=== PATIENT | male | born 1945 | race Caucasian/White ===

== ENCOUNTER 2018-04-13 07:00 | Day surgery (SDC) | payer OTHER ==
[2018-04-13] MEDS ORDERED: ceFAZolin 2 GM/DEXTROSE 100 ML IV ONE (07:41)
[2018-04-13] MEDS ORDERED: LIDOCAINE 1% 2 ML INJ ID PRN (07:41)
[2018-04-13] MEDS ORDERED: LR 1,000 ML IV ONE (07:41)
--- NOTE | 2018-04-13 07:50 | PDANEPAE ---
ANE Past Medical History - Cardiovascular History Hx Hypertension: Yes Hx Arrhythmias: No Hx Chest Pain: No Hx Coronary Artery / Peripheral Vascular Disease: No Hx CHF / Valvular Disease: No Hx Palpitations: No - Pulmonary History Hx COPD: Yes Hx Asthma/Reactive Airway Disease: Yes Hx Recent Upper Respiratory Infection: No Hx Oxygen in Use at Home: No Hx Sleep Apnea: No - Endocrine History Hx Diabetes: Yes Hypothyroid: Yes Hyperthyroid: No Obesity: no - Renal History Hx Renal Disorders: No - Liver History Hx Hepatic Disorders: No - Neurological & Psychiatric Hx Hx Neurological and Psychiatric Disorders: No ANE Review of Systems Review of Systems: - Exercise capacity Exercise capacity: >=4 METS ANE Patient History - Allergies Allergies/Adverse Reactions: No Known Allergies Allergy (Verified 08/29/15 15:06) - Home Medications Home Medications: ATORVASTATIN CALCIUM [Lipitor 80 mg] 80 mg PO DAILY 03/15/11 [Last Taken ] Albuterol [Ventolin Hfa] 2 puffs IH Q4PRN 03/15/11 [Last Taken 04/08/18] Fluticasone Nasal [Flonase nasal spray] 2 sprays NASAL DAILY 03/15/11 [Last Taken 04/13/18] Hydrochlorothiazide 0 mg PO 03/15/11 [Last Taken 04/12/18] Levothyroxine [Synthroid] 0 mcg PO DAILY 03/15/11 [Last Taken 04/13/18] Diltiazem HCl [Cartia XT 180mg] 180 mg PO DAILY 08/29/15 [Last Taken 04/13/18] Metformin HCl [Metformin 1000 mg] 1,000 mg PO 08/29/15 [Last Taken 04/12/18] Aspirin 81mg (*) 04/13/18 [Last Taken 04/13/18] - Smoking Hx Smoking Status: Never smoked ANE Labs/Vital Signs - Labs Result Diagrams: 04/13/18 08:05 - Vital Signs Height: 180.34 cm Weight: 70.307 kg ANE Physical Exam - Airway Neck exam: FROM Mallampati Score: Class 1 Mouth exam: normal dental/mouth exam, poor dentition - Pulmonary Pulmonary: clear to auscultation - Cardiovascular Cardiovascular: regular rate and rhythym - ASA Status ASA Status: II, III ANE Anesthesia Plan Anesthesia Plan: general endotracheal anesthesia
[2018-04-13] MEDS ORDERED: BUPIVACAINE 0.5% 30 ML SDV ONE (07:53)
--- NOTE | 2018-04-13 08:21 | PDHPUP ---
History & Physical Update H&P update statement: This history and physical update is based on an assessment of the patient which was completed after admission or registration (within 24 hours), but prior to the surgery/procedure. H&P update: H&P reviewed & patient examined, no change in patient's condition since H&P completed
[2018-04-13] MEDS ORDERED: fentaNYL 100 MCG/2 ML INJ ONE ×2 (08:34→09:09)
[2018-04-13] MEDS ORDERED: PROPOFOL 200 MG/20 ML VIAL ONE (08:34)
[2018-04-13] MEDS ORDERED: ROCURONIUM 50 MG/5 ML VIAL ONE ×2 (08:35→09:09)
[2018-04-13] MEDS ORDERED: LIDOCAINE 2% 100 MG/5 ML SYR ONE (08:38)
[2018-04-13] MEDS ORDERED: DEXAMETHASONE 4 MG/ML VIAL ONE ×3 (08:57)
[2018-04-13] MEDS ORDERED: ONDANSETRON 4 MG/2 ML VIAL ONE (08:58)
[2018-04-13] MEDS ORDERED: KETOROLAC 30 MG/1 ML SDV ONE (08:58)
[2018-04-13] MEDS ORDERED: SUGAMMADEX SODIUM 200 MG/2 ML VIAL IVP ONE (09:22)
[2018-04-13] MEDS ORDERED: ONDANSETRON 4 MG/2 ML VIAL IVP PRN (09:25)
[2018-04-13] MEDS ORDERED: oxyCODONE IR 5 MG TAB PO PRN (09:25)
[2018-04-13] MEDS ORDERED: fentaNYL 100 MCG/2 ML INJ IVP PRN (09:25)
[2018-04-13] MEDS ORDERED: HYDROmorphONE/DILAUDID 2 MG/ML INJ IVP PRN (09:25)
[2018-04-13] MEDS ORDERED: LR 500 ML IV PRN (09:25)
[2018-04-13] MEDS ORDERED: HYDROCODONE/APAP 5/325 TAB PO PRN (09:25)
[2018-04-13] MEDS ORDERED: DEXAMETHASONE 4 MG/ML VIAL IVP PRN (09:25)
[2018-04-13] MEDS ORDERED: DIAZEPAM 5 MG/ML 1 ML SYR IVP PRN (09:25)
[2018-04-13] MEDS ORDERED: MEPERIDINE 25 MG/0.5 ML AMP IVP PRN (09:25)
[2018-04-13] MEDS ORDERED: LABETALOL HCL 5 MG/ML 20 ML MDV IVP PRN (09:25)
[2018-04-13] MEDS ORDERED: METOCLOPRAMIDE 10 MG/2 ML VIAL IVP PRN (09:25)
[2018-04-13] MEDS ORDERED: NALOXONE HCL 0.4 MG/ML INJ IVP PRN (09:25)
[2018-04-13] MEDS ORDERED: PROMETHAZINE HCL 25 MG/ML INJ IVP PRN (09:25)
[2018-04-13] MEDS ORDERED: ALBUTEROL 3 ML DEYVIAL IH PRN (09:25)
[2018-04-13] MEDS ORDERED: ACETAMINOPHEN 500 MG TAB PO PRN (09:25)
--- NOTE | 2018-04-13 09:41 | POSTOPPROG ---
Post Op Note Date of Operation: 04/13/18 Surgeon: Juan Deng Counter Intelligence: Ariana Anesthesiologist: Alesia Anesthesia: GET(General Endotracheal) Pre-op Diagnosis: LIH, umbilical hernia Post-op Diagnosis: same Indication: same Procedure: Lap LIH and open umbilical hernia repairs Findings: Indirect hernia on L Inf/Abcess present in the surg proc area at time of surgery?: No Depth: Organ Space EBL: Minimal
[2018-04-13] MEDS ORDERED: HYDROCODONE/APAP 5/325 TAB ONE (10:08)
--- NOTE | 2018-04-13 10:29 | POSTANESTH ---
Post Anesthetic Evaluation Cardiovascular Status: Normal, Stable Respiratory Status: Normal, Stable Level of Consciousness/Mental Status: Can Participate in Eval Pain Control: Adequate, Prn Tx Ordered Nausea/Vomiting Control: Adequate, Prn Tx Ordered Complications Possibly Related to Anesthesia: None Noted
[2018-04-13 11:27] VITALS: BP 121/69
--- NOTE | 2018-04-14 02:35 | GOP ---
DATE OF OPERATION: 04/13/2018 SURGEON: Juan Deng MD TERMITE CONTROL TECHNICIAN: Dina Lane NP ANESTHESIOLOGIST: Dr. Dumas. PREOPERATIVE DIAGNOSIS: Umbilical hernia and left inguinal hernia. POSTOPERATIVE DIAGNOSIS: Umbilical hernia and left inguinal hernia. PROCEDURE PERFORMED: Laparoscopic left inguinal hernia repair with exploration of the right and open umbilical hernia repair. FINDINGS: The patient was found to have a 6 mm umbilical hernia defect. He had a direct left inguin al hernia. No evidence of herniation on the right. DESCRIPTION OF PROCEDURE: The patient was taken to the operating room where he received satisfactory general endotracheal anesthesia by Dr. Dumas, placed in a supine position, prepped and draped in the u sumd sterile fashion. An infraumbilical incision was made. Dissection was carried down through the subcutaneous tissue and down to the fascia. The umbilical hernia sac was dissected free from surroun ding subcutaneous tissue and the back of the skin of the umbilicus. The sac was opened at the fascia l level. Its contents were reduced. The sac was removed. The fascia was closed with interrupted 0 Surgilon [id number] sutures. The wound was infiltrated with 0.5% Marcaine. A second incision w as made distally in the anterior rectus sheath. A subfascial tunnel was developed into the preperito raquel space, which was dissected free with a balloon dissector that was replaced with CO2 insufflation and trocar. Two other trocars were placed in the midline under direct vision. Rik ligament was exposed bilaterally. The cords were mobilized bilaterally. Peritoneum was dissected off the cord st ructures. There were no indirect sacs. On the right, there was no evidence of herniation. On the l eft side a direct defect was identified. Its contents reduced. A Covidien polyester mesh patch was then placed over the inguinal floor and anchored in place with the AbsorbaTack securing it to Rik ligament, to the lacunar ligament, the anterior abdominal wall and the lateral abdominal wall outside the internal ring. Hemostasis was assured. Pneumopreperitoneum was released and trocars removed un yefri direct vision. Trocar sites were closed with 0 Vicryl for the fascia, 4-0 Monocryl subcuticular stitch for the skin, and all wounds were infiltrated with 0.5% Marcaine. Blood loss was negligible. There were no complications. Taken to the recovery room in good condition. /[id number]/MODL
== END 2018-04-13 11:34 | disposition home or self-care (01) ==
LOC: FSGY 07:00
PROVIDERS: ATTEND Surgery
PROC: 0WQF0ZZ Repair Abdominal Wall, Open Approach (ICD-10-PCS; principal; 2018-04-13 08:30)
PROC: 0YU64JZ Supplement Left Inguinal Region with Synthetic Substitute, Percutaneous Endoscopic Approach (ICD-10-PCS; principal; 2018-04-13 08:30)
DX: K40.90 Unilateral inguinal hernia, without obstruction or gangrene, not specified as recurrent (principal); K42.9 Umbilical hernia without obstruction or gangrene; J45.909 Unspecified asthma, uncomplicated; N40.1 Benign prostatic hyperplasia with lower urinary tract symptoms; E11.42 Type 2 diabetes mellitus with diabetic polyneuropathy; E78.5 Hyperlipidemia, unspecified; I10 Essential (primary) hypertension; E03.9 Hypothyroidism, unspecified; E66.3 Overweight; Z79.82 Long term (current) use of aspirin; Z79.84 Long term (current) use of oral hypoglycemic drugs
CPT/HCPCS: C1727; C1781; J0690; J1100; J1885; J2001; J2405; J2704; J3010

== ENCOUNTER → 2018-10-04 | Outpatient (CLI) | payer OTHER | LOC: FIMAGING 08:29 ==